=== PATIENT | female | born 2005 | race Hispanic/Latino ===

== ENCOUNTER 2025-02-07 23:32 | Day surgery (SDC) | payer OTHER ==
[2025-02-08] VITALS: BMI 25.7
[2025-02-08] MEDS ORDERED: hydrALAZINE 20 MG/ML VIAL SLOW IVP PRN (00:26)
== END 2025-02-08 02:55 | disposition home or self-care (01) ==
LOC: CSHLD/OP 23:32
PROVIDERS: ATTEND Family Medicine
DX: Z03.79 Encounter for other suspected maternal and fetal conditions ruled out (principal); Z79.899 Other long term (current) drug therapy
CPT/HCPCS: 99285

== ENCOUNTER 2025-02-28 22:58 | Day surgery (SDC) | payer OTHER ==
[2025-03-01 00:17] LABS: Fetal Membranes Rupture No Membranes Rupture (No Rupture)
[2025-03-01 00:53] LABS: Glucose, Urine (Dipstick) Normal (Negative); Leukocyte 100 (Negative); Protein, Urine (Dipstick) Negative (Neg-Trace); Specific Gravity, Urine 1.005 (1.005-1.030)
[2025-03-01 00:59] LABS: Bacteria/HPF None Seen HPF (None Seen); CAUTI Indications for Culture Pregnancy; RBC/HPF None Seen HPF (0-3); WBC/HPF None Seen HPF (0-3)
[2025-03-01 01:00] LABS: Urine Culture Reflex Yes Yes
== END 2025-03-01 01:55 | disposition home or self-care (01) ==
LOC: CSHLD/OP 22:58
PROVIDERS: ATTEND Family Medicine
DX: Z03.71 Encounter for suspected problem with amniotic cavity and membrane ruled out (principal); O47.1 False labor at or after 37 completed weeks of gestation; O99.891 Other specified diseases and conditions complicating pregnancy; R30.0 Dysuria; Z3A.37 37 weeks gestation of pregnancy
CPT/HCPCS: 81001; 84112; 87086; 99285

== ENCOUNTER 2025-03-16 19:00 | Inpatient (IN) | payer MEDICAID, OTHER, SELFPAY ==
[2025-03-16] MEDS ORDERED: Lidocaine 1% (PF) 30 ML VIAL SC PRN (20:20)
[2025-03-16] MEDS ORDERED: Diphenoxylate HCl/Atropine Tablet PO PRN ×2 (20:20)
[2025-03-16] MEDS ORDERED: Ondansetron PF 4 MG/2 ML Vial IVP PRN (20:20)
[2025-03-16] MEDS ORDERED: hydrALAZINE 20 MG/ML VIAL SLOW IVP PRN (20:20)
[2025-03-16] MEDS ORDERED: Acetaminophen 500 MG TAB PO PRN (20:20)
[2025-03-16] MEDS ORDERED: Carboprost 250 MCG/ML AMP IM PRN (20:20)
[2025-03-16] MEDS ORDERED: Ibuprofen 800 MG TAB PO PRN (20:20)
[2025-03-16] MEDS ORDERED: Tranexamic Acid 1,000 MG/10 ML VIAL IVP PRN (20:20)
[2025-03-16] MEDS ORDERED: Methylergonovine 0.2 MG/ML VIAL IM PRN (20:20)
[2025-03-16 20:26] VITALS: BMI 31.6
[2025-03-16] MEDS ORDERED: Oxytocin 30 units/NS 500 ML 500 ML IV SCH ×3 (20:30)
[2025-03-16 21:10] LABS: Hematocrit 34.5 % (34.9-44.5); Hemoglobin 11.5 g/dL (12.0-15.5); Mean Corpuscular Hemoglobin 28.7 pg (27.0-33.0); Mean Corpuscular Volume 86.0 fL (81.6-98.3); Platelet Count 257 10x3/uL (150-450); Red Blood Cell (RBC) Count 4.01 10x6/uL (3.90-5.03); White Blood Cell (WBC) Count 11.09 10x3/uL (3.5-10.5)
[2025-03-16 22:02] LABS: Hep B Surf Ag - L&D Non-Reactive S/CO (NonReactive)
[2025-03-16 22:04] LABS: Syphilis Antibody Index 0.03 S/CO (<1.00 Non-Reactive)
[2025-03-18] MEDS: Dinoprostone 10 MG Suppository VAG SCH (17:07)
[2025-03-19] MEDS: fentaNYL/Ropivacaine Epidural 100 ML ONE (21:34)
[2025-03-19] MEDS ORDERED: Ondansetron PF 4 MG/2 ML Vial IVP PRN (21:37)
[2025-03-19] MEDS ORDERED: diphenhydrAMINE 50 MG/ML VIAL IVP PRN (21:37)
[2025-03-19] MEDS ORDERED: Communication Order-Pharmacy FS SCH (21:45)
[2025-03-19] MEDS ORDERED: fentaNYL 2 mcg/Ropivacaine 0.2% Epidural 100 ML CADD EPIDURAL SCH (21:45)
[2025-03-19 23:17] LABS: #Basophils Less than 0.03 10x3/uL (0.0-0.2); #Eosinophils Less than 0.03 10x3/uL (0.0-0.5); #Monocytes 0.60 10x3/uL (0.0-1.1); #Neutrophils 11.94 10x3/uL (1.5-8.4); %Basophils 0.1 % (0.0-2.0); %Eosinophils 0.1 % (0.0-6.0); %Lymphocytes 10.6 % (18.0-47.0); %Monocytes 4.2 % (0.0-10.0); %Neutrophils 84.6 % (40.0-75.0); Hematocrit 37.2 % (34.9-44.5); Hemoglobin 12.2 g/dL (12.0-15.5); Mean Corpuscular Hemoglobin 28.4 pg (27.0-33.0); Mean Corpuscular Volume 86.7 fL (81.6-98.3); Platelet Count 227 10x3/uL (150-450); Red Blood Cell (RBC) Count 4.29 10x6/uL (3.90-5.03); White Blood Cell (WBC) Count 14.12 10x3/uL (3.5-10.5)
[2025-03-19 23:28] LABS: Protein, Urine Random Quant Less than 10 mg/dL (1-14)
[2025-03-19 23:30] LABS: ALT (SGPT) 10 U/L (Less than 34); AST (SGOT) 20 U/L (11-34); Albumin 2.8 g/dL (3.1-4.5); Alkaline Phosphatase 196 U/L (40-100); Anion Gap 15 mmol/L (10-20); BUN (Urea Nitrogen) 7 mg/dL (8.4-21.0); Bilirubin, Total 0.4 mg/dL (0.3-1.2); Calc. Creatinine Clearance 220 mL/min (70-130); Calcium 9.5 mg/dL (7.8-10.44); Carbon Dioxide 21 mmol/L (22-29); Chloride 108 mmol/L (98-107); Globulin 4.1 g/dL (2.4-3.5); Glucose 101 mg/dL (70-105); Potassium 4.4 mmol/L (3.5-5.1); Sodium 140 mmol/L (136-145)
[2025-03-20] MEDS ORDERED: Famotidine/PF 20 mg/2ml Vial SLOW IVP PRN (03:47)
[2025-03-20] MEDS ORDERED: Bicitra 30 ML UDCUP PO PRN (03:47)
[2025-03-20] MEDS ORDERED: Azithromycin 500 MG in Sodium Chloride 0.9% 250 ML 250 ML IVPB SCH (04:00)
[2025-03-20] MEDS ORDERED: Ondansetron PF 4 MG/2 ML Vial IVP PRN ×2 (04:26)
[2025-03-20] MEDS ORDERED: diphenhydrAMINE 50 MG/ML VIAL IVP PRN (04:26)
[2025-03-20] MEDS ORDERED: Meperidine HCl/PF 25 MG (1 mL) VIAL SLOW IVP PRN (04:26)
[2025-03-20] MEDS ORDERED: Ketorolac Tromethamine 30 MG (1 mL) VIAL IVP SCH (04:30)
[2025-03-20] MEDS ORDERED: Communication Order-Pharmacy FS SCH (04:30)
[2025-03-20 04:40] LABS: Analyzer IN Cardio CS NICU; Critical Notified By: CP.PH; RapidComm Collect By CBN; pH (Cord, venous) 7.365 (7.250-7.350)
[2025-03-20 04:43] LABS: Analyzer IN Cardio CS NICU; Critical Notified By: CP.PH; RapidComm Collect By CBN
[2025-03-20] MEDS ORDERED: Methylergonovine 0.2 MG/ML VIAL IM PRN (04:56)
[2025-03-20] MEDS ORDERED: Simethicone Chewable 80 MG TAB PO PRN (04:56)
[2025-03-20] MEDS ORDERED: Acetaminophen 325 MG TAB PO PRN (04:56)
[2025-03-20] MEDS ORDERED: Lanolin Ointment 7 GM TUBE TOP PRN (04:56)
[2025-03-20] MEDS ORDERED: hydrALAZINE 20 MG/ML VIAL SLOW IVP PRN (04:56)
[2025-03-20] MEDS ORDERED: Methylergonovine 0.2 MG TAB PO PRN (04:56)
[2025-03-20] MEDS ORDERED: Oxytocin 30 units/NS 500 ML 500 ML IV SCH (05:00)
[2025-03-20] MEDS: Ketorolac Tromethamine 30 MG (1 mL) VIAL IVP PRN (09:38)
[2025-03-20] MEDS: CEFAZOLIN 2 GM VIAL ONE (19:38)
[2025-03-20] MEDS: Azithromycin 500 MG VIAL ONE (19:38)
[2025-03-20] MEDS: Dexamethasone 10 MG/ML VIAL ONE (19:38)
[2025-03-20] MEDS: Ondansetron PF 4 MG/2 ML Vial ONE (19:39)
[2025-03-20] MEDS: Oxytocin 10 UNITS/ML VIAL ONE (19:39)
[2025-03-20] MEDS: PHENYLEPHRINE-NS 100 MCG/ML 10 ML SYRINGE ONE (19:39)
[2025-03-21 04:20] LABS: #Basophils Less than 0.03 10x3/uL (0.0-0.2); #Eosinophils 0.04 10x3/uL (0.0-0.5); #Monocytes 0.69 10x3/uL (0.0-1.1); #Neutrophils 9.95 10x3/uL (1.5-8.4); %Basophils 0.1 % (0.0-2.0); %Eosinophils 0.3 % (0.0-6.0); %Lymphocytes 19.3 % (18.0-47.0); %Monocytes 5.2 % (0.0-10.0); %Neutrophils 74.5 % (40.0-75.0); Hematocrit 27.7 % (34.9-44.5); Hemoglobin 9.2 g/dL (12.0-15.5); Mean Corpuscular Hemoglobin 28.6 pg (27.0-33.0); Mean Corpuscular Volume 86.0 fL (81.6-98.3); Platelet Count 207 10x3/uL (150-450); Red Blood Cell (RBC) Count 3.22 10x6/uL (3.90-5.03); White Blood Cell (WBC) Count 13.36 10x3/uL (3.5-10.5)
[2025-03-21] MEDS: Acetaminophen 325 MG TAB PO PRN (08:30)
[2025-03-21] MEDS: Ibuprofen 800 MG TAB PO SCH (12:37)
[2025-03-21 20:03] VITALS: TEMP 98.1
[2025-03-22] MEDS: Tranexamic Acid 1,000 MG/10 ML VIAL ONE (06:42)
[2025-03-22] MEDS: Measles/Mumps/Rubella 10 MCG/0.5 ML VIAL SC ONE ×2 (06:42→09:56)
[2025-03-22 08:08] VITALS: BP 115/59
== END 2025-03-22 12:35 | disposition home or self-care (01) | DRG 787 ==
LOC: CSHLD 20:01 → CSHPED 03-20 08:40
PROVIDERS: ADMIT Family Medicine; ATTEND Family Medicine
PROC: 4A1HXCZ Monitoring of Products of Conception, Cardiac Rate, External Approach (ICD-10-PCS; principal; 2025-03-16)
PROC: 3E0P7VZ Introduction of Hormone into Female Reproductive, Via Natural or Artificial Opening (ICD-10-PCS; 2025-03-16)
PROC: 10D00Z1 Extraction of Products of Conception, Low, Open Approach (ICD-10-PCS; 2025-03-20)
DX: O26.643 Intrahepatic cholestasis of pregnancy, third trimester (principal); O98.82 Other maternal infectious and parasitic diseases complicating childbirth; O77.0 Labor and delivery complicated by meconium in amniotic fluid; O69.81X0 Labor and delivery complicated by cord around neck, without compression, not applicable or unspecified; Z37.0 Single live birth; Z3A.39 39 weeks gestation of pregnancy
CPT/HCPCS: 36415; 51702; 59200; 80053; 82570; 82805; 84156; 85025; 85027; 86780; 86850; 86900; 86901; 87340; 90707; J1100; J1885; J2274; J2405; J2590; J3010